=== PATIENT | female | born 1990 | race Caucasian/White ===

== ENCOUNTER 2024-07-08 13:50 | Emergency (ER) | payer BC, SELFPAY ==
[2024-07-08 14:35] VITALS: BP 128/83; PULSE 74; RESP 19; TEMP 36.9; O2SAT 100; BMI 37.8
--- NOTE | 2024-07-08 15:09 | ED_ITS ---
Discharge Plan Disposition Patient Disposition: Home, Self-Care Condition: Good Prescriptions Prescriptions: New methylprednisolone [Medrol (Baldev)] 4 mg tablets,dose pack See Rx Instructions .Route .COMPLEX 6 Days Qty: 21 0RF Rx Instructions: taper pack; No Action albuterol sulfate 90 mcg/actuation Hfa Aerosol Inhaler 2 puff INHALATION Q6H PRN (Reason: Asthma) Referrals Follow up/Referrals: Provider,Referral, MD [Primary Care Provider] - See instructions Activity Restrictions/Add. Instructions Additional Instructions/Restrictions: Take medication as prescribed Follow up with your Family Doctor if no improvement or any worsening of symptoms Get your eye exam and start your medicatoin as prescribed Straight to ER if any life threatening symptoms Clinical Impressions Clinical Impression: Hand joint pain Qualifiers: Laterality: bilateral Qualified Code(s): M25.541 - Pain in joints of right hand Instructions Patient Instructions: Lupus (Alternative Therapy), DI for Systemic Lupus Erythematosus, Methylprednisolone Print Language Print Language: Kyrgyz Discharge ED Provider: Mahnaz Vu [facility] [place] HPI General Stated complaint: weakness, bilateral finger tingling/cramping Mode of Arrival: Ambulatory Source of Information: Patient Limitations: No Limitations Time Seen by Provider: 07/08/24 15:09 Description of Symptoms (Recalled from Triage Doc. by RN): PATIENT C/O PAIN TO BILATERAL ARMS AND HANDS AND STATES THAT THEY DON'T FUNCTION CORRECTLY . PATIENT STATES SHE THINKS SHE IS HAVING A LUPUS FLARE-UP OR HAS PINCHED A NERVE HEENT Symptoms (Recalled from RN notes): No Resp Symptoms (Recalled from RN notes): No Skin Symptoms (Recalled from RN notes): No MS Symptoms (Recalled from RN notes): Yes Functional Status (Recalled from RN notes): WNL History of Present Illness Provider Complaint: Patient states that she has a hx of lupus States she has been doing alot of heavy lifting, push, pulling and tugging while moving last week and for the last couple of days she has been having bilateral arm pain and pain in her hands when she picks stuff up States not sure if she may be having a lupus flare or pinched a nerve in her back during the move Related Data Home Medications ?Medication ?Instructions ?Recorded ?Confirmed albuterol sulfate 90 mcg/actuation 2 puff inhalation Q6H PRN Asthma 07/08/24 07/08/24 aerosol inhaler Previous Rx's ?Medication ?Instructions ?Recorded methylprednisolone 4 mg tablets in See Rx Instructions .Route 07/08/24 a dose pack (Medrol (Baldev)) .COMPLEX 6 days #21 tabs Allergies Allergy/AdvReac Type Severity Reaction Status Date / Time sulfamethoxazole Allergy Swelling Verified 07/08/24 14:48 [From Bactrim] of Lip/Tongue/Throat tramadol Allergy Swelling Verified 07/08/24 14:48 of Lip/Tongue/Throat trimethoprim [From Bactrim] Allergy Swelling Verified 07/08/24 14:48 of Lip/Tongue/Throat Worker's Comp Is this a Worker's Comp case?: No [facility] Disclaimer: The information contained in this section may have been updated after the patient was seen, as this information can be updated by other users. Medical History (Updated 07/08/24 @ 15:28 by Mahnaz Vu APRN) Lupus Urinary tract infection Asthma Surgical History (Updated 07/08/24 @ 14:48 by Akiko Salcido RN) History of cholecystectomy Social History Smoking Status: Unknown if ever smoked alcohol intake: never current occupational status: unemployed Travel in the last 8 weeks: None ROS Obtained: Yes All systems reviewed & no additional complaints except as documented and Yes Systems reviewed as appropriate & no additional complaints except as documented Constitutional Constitutional: Reports system reviewed and no additional complaints, except as documented, Reports as per HPI, Denies body ache, Denies chills, Denies fever(s) and Denies headache(s) ENT Ears, Nose, Mouth, and Throat: Reports system reviewed and no additional complaints, except as documented, Reports as per HPI and Denies headache(s) Cardiovascular Cardiovascular: Reports system reviewed and no additional complaints, except as documented and Reports as per HPI Respiratory Respiratory: Reports system reviewed and no additional complaints, except as documented and Reports as per HPI Gastrointestinal Gastrointestingal: Reports system reviewed and no additional complaints, except as documented and as per HPI Musculoskeletal Musculoskeletal: Reports system reviewed and no additional complaints, except as documented and Reports as per HPI Comments: pain bilateral arms and pain in hands hurts 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 Neurologic Neurologic: Denies headache(s) Physical Exam General General appearance: alert and in no apparent distress ENT ENT exam: Present mucous membranes moist Respiratory Respiratory exam: Present normal lung sounds bilaterally; Absent respiratory distress or wheezes Cardiovascular Cardiovascular exam: Present regular rate, normal rhythm and normal heart sounds Abdominal Exam Abdominal exam: Present soft and normal bowel sounds; Absent distention or tenderness Extremities Exam Extremities exam: Present normal capillary refill and other (report pain bilateral arms from elbows to fingertips, worse when she tries to corporate planning manager something); Absent edema, joint swelling or cyanosis Neurological Exam Neurological exam: Present alert, oriented X3 and normal gait Medical Decision Making Ravin Inquiry Pt receiving controlled substance: No Ravin was queried for this patient: No Vital Signs: 07/08/24 14:35 Temperature 98.5 F Temperature Source Oral Pulse Rate [Left] 74 Respiratory Rate 19 Blood Pressure [Left Arm] 128/83 Blood Pressure Mean [Left Arm] 98 Blood Pressure Source [Left Arm] Automatic Cuff Blood Pressure Position [Left Arm] Sitting 02 Sat by Pulse Oximetry 100 Oxygen Delivery Method Room Air Medical Decision Narrative: Patient reports has a hx of lupus and has been under stress moving, states she did alot of heavy lifting push pulling and tugging while moving this week and for the last two nights she has been having pain in bilateral arms from elbows to finger Recently was prescribed medication to treat her lupus but she hasnt started it yet awaiting to get eye exam first suspect lupus flare due to recent stress of moving and doing alot of heavy lifting will prescribe Medrol dose pack and have patient follow up with PCP if no improvement Denies injury to back, no tenderness with palpation and pain in hands worse when trying corporate planning manager something
[2024-07-08 15:24] LABS: UTC Pregnancy Test, Urine Negative (Negative)
[2024-07-08 15:30] VITALS: BP 128/83; PULSE 74; RESP 19; TEMP 36.9; O2SAT 100
== END 2024-07-08 15:37 | disposition home or self-care (01) ==
PROVIDERS: Emergency Provider Nurse Practitioner
DX: M25.541 Pain in joints of right hand (principal); M79.601 Pain in right arm; M79.602 Pain in left arm; M32.9 Systemic lupus erythematosus, unspecified
CPT/HCPCS: 81025; 99204; 99212; G0463

== ENCOUNTER 2024-07-19 09:51 | Outpatient (CLI) | payer BC, SELFPAY ==
--- NOTE | 2024-07-19 09:55 | US_ITS ---
PROCEDURE INFORMATION: Exam: US Left Breast, Complete Exam date and time: 07/19/2024 9:48 AM Age: 34 years old Clinical indication: Induration of breast; Left; Additional info: Lft breast lump TECHNIQUE: Imaging protocol: Complete ultrasound of all four quadrants of the left breast and the retroareolar regions, including ultrasound of the axilla when performed. COMPARISON: No relevant prior studies available. FINDINGS: ULTRASOUND: Breast ultrasound findings: Sonographic images of the left breast including the retroareolar region, all 4 quadrants and the axilla do not demonstrate any solid or cystic masses. This is with particular attention to the 12 o'clock axis 7 cm from the nipple where the patient reports a palpable abnormality. No architectural distortion or acoustical shadowing. No skin thickening or axillary adenopathy. IMPRESSION: A skin marker should be placed over the area of palpable concern followed by a diagnostic unilateral mammogram with spot compression views for full evaluation of the patient's complaint of a palpable abnormality. ASSESSMENT: BI-RADS Category 0: Incomplete- Need Additional Imaging Evaluation
== END 2024-07-19 23:59 | disposition home or self-care (01) ==
LOC: RAD 09:52
PROVIDERS: PCP Family Medicine; Visit Provider Nurse Practitioner
DX: N63.25 Unspecified lump in the left breast, overlapping quadrants (principal)
CPT/HCPCS: 76641

== ENCOUNTER 2024-07-25 13:49 | Outpatient (CLI) | payer BC, SELFPAY ==
--- NOTE | 2024-07-25 13:56 | MM_ITS ---
PROCEDURE INFORMATION: Exam: Left Diagnostic Breast Tomosynthesis Exam date and time: 07/25/2024 1:40 PM Age: 34 years old Clinical indication: Region of palpable concern left breast. Recent negative ultrasound. TECHNIQUE: Imaging protocol: Left Diagnostic tomosynthesis and 2D mammography including computer-aided detection (CAD) when performed. Unilateral or bilateral exam. COMPARISON: US BREAST LT COMPLETE 07/19/2024 9:48 AM FINDINGS: MAMMOGRAPHY: Breast composition: There are scattered areas of fibroglandular density. Breast mammogram findings: Left breast full field and spot-compression tomosynthesis views were obtained. A radiopaque marker was placed over the region of palpable concern. Mass: No suspicious masses. Architectural distortion: None. Calcifications: No suspicious calcifications. Asymmetric density: None. Skin thickening: None. Axillary adenopathy: None. IMPRESSION: No mammographic finding to explain the patient's region of palpable concern. Recommend clinical follow-up. There are no findings suspicious for malignancy. Annual mammographic screening is recommended to commence at age 40 unless otherwise clinically indicated. ASSESSMENT: BI-RADS Category 1: Negative.
== END 2024-07-25 23:59 | disposition home or self-care (01) ==
LOC: RAD 13:51
PROVIDERS: PCP Nurse Practitioner; Visit Provider Nurse Practitioner
DX: N63.20 Unspecified lump in the left breast, unspecified quadrant (principal)
CPT/HCPCS: 77061; 77065; G0279

== ENCOUNTER 2025-02-16 10:36 | Outpatient (CLI) | payer MEDICAID, SELFPAY ==
[2025-02-16 10:45] LABS: Adenovirus F 40/41, stool Not Detected (NotDetected); Campylobacter Not Detected (NotDetected); Clostridium Difficile A/B, PCR Not Detected (NotDetected); Cryptosporidium Not Detected (NotDetected); Cyclospora Cayetanesis Not Detected (NotDetected); Entamoeba histolytica Not Detected (NotDetected); Enteroaggregative E coli Not Detected (NotDetected); Enteropathogenic E coli Not Detected (NotDetected); Enterotoxigenic E coli Not Detected (NotDetected); Giardia lamblia Not Detected (NotDetected); Norovirus Not Detected (NotDetected); Plesimonas Shigalloides, PCR Not Detected (NotDetected); Rotavirus A Not Detected (NotDetected); Salmonella, PCR Not Detected (NotDetected); Sapovirus Not Detected (NotDetected); Shiga-like toxin E coli Not Detected (NotDetected); Shigella Enterovasive E coli Not Detected (NotDetected); Vibrio Cholerae Not Detected (NotDetected); Vibrio, PCR Not Detected (NotDetected); Yersinia Entercolitica, PCR Not Detected (NotDetected)
[2025-02-16 14:36] LABS: Astrovirus Detected (NotDetected)
== END 2025-02-16 23:59 | disposition home or self-care (01) ==
PROVIDERS: PCP Nurse Practitioner; Visit Provider Nurse Practitioner
DX: R19.7 Diarrhea, unspecified (principal)
CPT/HCPCS: 87507

== ENCOUNTER 2025-10-04 12:52 | Outpatient (CLI) | payer MEDICAID, SELFPAY ==
--- NOTE | 2025-10-04 12:54 | US_ITS ---
PROCEDURE INFORMATION: Exam: US Left Breast, Complete Exam date and time: 10/04/2025 1:16 PM Age: 35 years old Clinical indication: Left breast palpable area of concern. TECHNIQUE: Imaging protocol: Complete ultrasound of all four quadrants of the left breast and the retroareolar regions, including ultrasound of the axilla when performed. COMPARISON: US BREAST LT COMPLETE 07/19/2024 9:48 AM FINDINGS: ULTRASOUND: Breast ultrasound findings: Ultrasound of the palpable area of concern in the left breast demonstrates no suspicious mass, shadowing, or distortion. Calipers are placed upon normal fatty tissue in this region, correlating to mammogram from 07/25/2024. Incidental benign cyst at 1 o'clock, 8 cm from the nipple measuring 0.4 cm. No suspicious solid mass, shadowing, or distortion throughout the remainder of the left breast. No axillary adenopathy. IMPRESSION: 1. No sonographic evidence of malignancy. Continued monitoring for any changes in the palpable area of concern is recommended, with repeat imaging if necessary. 2. Further evaluation of a palpable abnormality should be based on clinical grounds regardless of radiographic findings or lack thereof. ASSESSMENT: BI-RADS Category 2: Benign.
== END 2025-10-04 23:59 | disposition home or self-care (01) ==
LOC: RAD 12:52
PROVIDERS: PCP Nurse Practitioner; Visit Provider Nurse Practitioner
DX: N60.02 Solitary cyst of left breast
CPT/HCPCS: 76641